=== PATIENT | female | born 1940 | race Caucasian/White ===

== ENCOUNTER 2017-07-26 13:16 | Emergency (ER) | payer MEDICARE, SELFPAY ==
[2017-07-26 13:17] VITALS: BP 171/90; PULSE 71; RESP 24; TEMP 36.1; O2SAT 98; BMI 26.4
--- NOTE | 2017-07-26 13:29 | ED.VISSUMM ---
- ER Visit Summary Date of Service: 07/26/17 Chief Complaint: Nausea, vomiting diarrhea History of Present Illness: The patient is a 77 F no significant past medical history prior appendectomy and cholecystectomy. No recent hospitalization. No recent surgery. No recent antibiotics. She is on no medications at home. Patient states intermittently for last months she has had nausea, vomiting diarrhea. No fever. No melena. No drastic weight change. Today she had similar symptoms and given the ER to be evaluated. She denies any abdominal pain. He denies any recent travel. They drink city water and bottled water at home. No one else at home with similar symptoms. She lives with her granddaughter. Physical Examination: Appearing older female. Vital signs are stable and afebrile. Blood pressure 171/90. Afebrile. No distress. H EENT exam mildly dry. Otherwise unremarkable. Neck nontender. No lymphadenopathy. Lungs clear to auscultation bilaterally. Heart regular rate and rhythm no murmur. Abdomen is soft, nontender, nondistended normal bowel sounds no peritoneal signs. No localizing tenderness. Moving all 4 extremities. Neurovascular intact. Neurologically she is awake alert without any focal motor deficits. Skin exam unremarkable. Back exam normal. Test Results: [] Emergency Department Course and Treatment: Patient will be hydrated with a liter of fluid. IV Zofran for nausea. P.o. fluid challenge. Treatment Plan: [] Disposition: Discharge Impression: Acute nausea, vomiting and diarrhea This note was generated with [employer] dictation software. It may contain incorrect words, spelling, and punctuation that were not noted in review of the chart prior to signing ED Disposition - Plan for ED Patient: Chief Complaint: Nausea/Vomiting/Diarrhea Referrals: Care Physician,No Primary [Primary Care Provider] -
--- NOTE | 2017-07-26 13:31 | ED.DEP ---
ED Disposition - Plan for ED Patient: Disposition: Home or Assisted Living Chief Complaint: Nausea/Vomiting/Diarrhea Instructions: ED Vomiting Diarrhea Nonspecific Ad Prescriptions: Ondansetron [Zofran Odt] 4 mg PO Q4H PRN PRN #7 tab.rapdis PRN Reason: Nausea Referrals: Elan Bagley MD [STAFF PHYSICIAN] - Additional Instructions: plenty of fluids and rest. Return if feeling worse or unable to keep fluids down. Zofran as needed for nausea.
[2017-07-26] MEDS: Ondansetron 4 MG/2 ML Vial IV (13:36)
[2017-07-26] MEDS: 0.9% Normal Saline 1,000 ML 1000 ML IV (13:36)
[2017-07-26 13:48] LABS: Absolute Lymphocyte Count 1.27 X10^3/ul (0.83-4.51); Absolute Neutrophil Count 3.8 X10^3/uL (2.0-7.7); Basophil# 0.01 X10^3/uL; Basophil% 0.2 % (0-1); Eosinophil# 0.18 X10^3/uL; Eosinophils% 3.2 % (0-5); Hematocrit 36.6 % (37-47); Hemoglobin 11.8 g/dl (12.0-15.0); Lymphocyte # 1.27 X10^3/ul (4.0); Lymphocyte % 22.9 % (19-41); Mean Corp Hgb Conc 32.2 g/gl (32-36); Mean Corpuscular Volume 86.7 fL (81-99); Monocyte# 0.24 X10^3/uL; Monocyte% 4.3 % (0-10); Neutrophil # 3.84 X10^3/uL (2.7-7.7); Neutrophil % 69.4 % (47-70); Platelet Count 196 K/mm3 (150-450); RBC Distribution Width CV 13.8 % (11.6-14.6); RBC Distribution Width SD 43.8 fl (35.1-43.9); Red Blood Count 4.22 M/mm3 (4.2-5.4); White Blood Count 5.5 K/mm3 (4.4-11.0)
[2017-07-26 13:52] LABS: POSITIVE COUNT NO; POSITIVE DIFFERENTIAL NO; POSITIVE MORPHOLOGY NO
[2017-07-26 13:53] LABS: Anion Gap 6 (5-15); BUN 14 mg/dL (7-18); BUN/Creat Ratio 16.2 RATIO (10-20); Calcium,Total 8.9 mg/dL (8.5-10.1); Chloride 104 mmol/L (98-107); Creatinine, Serum 0.86 mg/dL (0.55-1.02); EST Glomerular Filtration Rate 68 mL/min (>60); Est Glom Filt Rate - Afr Amer 82 mL/min (>60); Estimated Creatinine Clearance 42.64 ml/min; Glucose 175 mg/dL (74-106); Sodium Level 138 mmol/L (136-145)
[2017-07-26 14:25] VITALS: BP 136/63; PULSE 72; RESP 14
== END 2017-07-26 14:26 | disposition home or self-care (01) ==
PROVIDERS: Emergency Provider Emergency Medicine
DX: R11.2 Nausea with vomiting, unspecified (principal); R19.7 Diarrhea, unspecified; E86.0 Dehydration; Z79.82 Long term (current) use of aspirin
CPT/HCPCS: 80048; 85025; 96361; 96374; 99283; J7030; A4216; J2405

== ENCOUNTER 2017-08-26 10:42 | Emergency (ER) | payer MEDICARE, SELFPAY ==
[2017-08-26 10:44] VITALS: BP 154/97; PULSE 87; RESP 17; TEMP 36.6; O2SAT 99; BMI 25.2
--- NOTE | 2017-08-26 10:58 | ED.RN ---
DESCRIBED PAIN UPPER EPIGASTRIC
--- NOTE | 2017-08-26 11:00 | EKG12_ITS ---
Test Reason : ABNL PAIN Blood Pressure : / mmHG Vent. Rate : 067 BPM Atrial Rate : 067 BPM P-R Int : 140 ms QRS Dur : 064 ms QT Int : 382 ms P-R-T Axes : 011 015 062 degrees QTc Int : 403 ms Normal sinus rhythm Nonspecific T wave abnormality Abnormal ECG Confirmed by LOLA STEVENS, DESTINEE ([id number]), film editor SANA BUCHANAN ([id number]) on 08/28/2017 1:57:18 PM Referred By: MAXIMO Confirmed By:DESTINEE DAVILA MD
--- NOTE | 2017-08-26 11:00 | RAD_ITS ---
STUDY: X-RAY - ACUTE ABDOMINAL SERIES REASON FOR EXAM: Female, 77 years old. Hiatal hernia. TECHNIQUE: Single view of the chest. Supine, and erect view(s) of the abdomen were obtained. COMPARISON: None. FINDINGS: The lungs are clear and expanded. Cholecystectomy clips are in place. Normal size heart. Normal mediastinum and jinny. Normal visualized pulmonary arteries. 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 There is a non-specific bowel gas pattern. The soft tissue structures of the abdomen and pelvis are unremarkable. There are diffuse degenerative changes of the visualized lumbar spine. 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 RAD/Acute Abdomen Inc Chest IMPRESSION: No evidence of acute cardiopulmonary or intra-abdominal process. Electronically Signed: Brendan Franz DO at 12:07 EDT , Service support ,
--- NOTE | 2017-08-26 11:11 | ED.VISSUMM ---
- ER Visit Summary Date of Service: 08/26/17 Chief Complaint: Abdominal pain History of Present Illness: The patient is a 77 F with no primary care physician. She reports that yesterday at noon she ate Ramen noodles and has epigastric abdominal pain began approximately 1 hour later. States that does not feel as though something got stuck during this. She describes it as a sharp pain that is 10 out of 10 at worst and 8 at 10 currently. Is worsened by sitting periods relieved by nothing. She reports she has been nauseated and had small amounts of episodes multiple times. No blood in her emesis. No diarrhea. Last bowel movement was 2 days ago. Typically goes 2-3 times per week. No blood in her stools or black tarry stools. No dysuria or frequency. Physical Examination: Vitals: Stable. Afebrile. General: Well-nourished and well-developed. Head: Normocephalic atraumatic. Neck: Supple, no lymphadenopathy. No JVD. Nontender. Cardiovascular: Regular rate and rhythm. No murmurs. Respiratory: No respiratory distress. Clear to auscultation bilaterally. Abdominal: Soft, mild diffuse sinus palpation over her upper abdomen, nondistended, normal bowel sounds. No guarding, rebound, or peritoneal signs. Back: Nontender. Extremities: Nontender, no edema. Skin: Normal color, no rash. Neurologic: Alert and oriented ?3. Cranial nerves II through XII are intact. Normal strength and sensation. Psych: Normal affect. Test Results: EKG is sinus at 67 with artifact and no acute changes. Troponin is negative. Three-view of the abdomen shows nonspecific bowel gas pattern. CBC is marked for segment neutrophils 75 lymphocytes 16. Chem-7 is more for glucose of 110. LFTs marked for globulin 4.4 and AST of 12. Lipase is 70. Emergency Department Course and Treatment: Patient was treated Zofran IV and a GI cocktail p.o. She is resting comfortably. She feels much improved and would like to go home. Treatment Plan: Patient will be discharged with Zofran and Zantac. Instructed follow-up Dr. Arthur Loo III in 3-5 days for another exam. Return to the emergency department for any worsening symptoms. Disposition: To home in improved and stable condition. Impression: 1. Abdominal pain, uncertain cause. This note was generated with [employer] dictation software. It may contain incorrect words, spelling, and punctuation that were not noted in review of the chart prior to signing ED Disposition - Plan for ED Patient: Chief Complaint: Abd Pain Instructions: ED Abdominal Pain Unkn Cause Prescriptions: Ondansetron [Zofran Odt] 4 mg PO Q8H PRN PRN #10 tablet PRN Reason: Nausea Ranitidine [Zantac] 300 mg PO DAILY #30 tablet Referrals: Arthur Loo III, MD [STAFF PHYSICIAN] - 3-5 Days
[2017-08-26] MEDS: Ondansetron 4 MG/2 ML Vial IV (11:26)
[2017-08-26 11:40] LABS: Absolute Lymphocyte Count 1.41 X10^3/ul (0.83-4.51); Absolute Neutrophil Count 6.5 X10^3/uL (2.0-7.7); Basophil# 0.01 X10^3/uL; Basophil% 0.1 % (0-1); Eosinophil# 0.16 X10^3/uL; Eosinophils% 1.8 % (0-5); Hematocrit 39.4 % (37-47); Hemoglobin 12.6 g/dl (12.0-15.0); Lymphocyte # 1.41 X10^3/ul (4.0); Lymphocyte % 16.2 % (19-41); Mean Corpuscular Volume 87.6 fL (81-99); Mean Platelet Vol. 10.2 fl (6.2-12.0); Monocyte# 0.63 X10^3/uL; Monocyte% 7.2 % (0-10); Neutrophil # 6.48 X10^3/uL (2.7-7.7); Neutrophil % 74.5 % (47-70); POSITIVE COUNT NO; POSITIVE DIFFERENTIAL NO; POSITIVE MORPHOLOGY NO; Platelet Count 233 K/mm3 (150-450); RBC Distribution Width CV 13.9 % (11.6-14.6); RBC Distribution Width SD 44.5 fl (35.1-43.9); White Blood Count 8.7 K/mm3 (4.4-11.0)
[2017-08-26 11:53] LABS: AST(SGOT) 16 U/L (15-37); Alanine Aminotransfer ALT/SGPT 12 U/L (13-56); Albumin, Serum 3.5 g/dL (3.2-5.0); Alkaline Phosphatase 91 U/L (45-117); Anion Gap 7 (5-15); BUN 17 mg/dL (7-18); BUN/Creat Ratio 18.8 RATIO (10-20); Bilirubin, Direct 0.28 mg/dL (0.00-0.30); Calcium,Total 8.9 mg/dL (8.5-10.1); Chloride 106 mmol/L (98-107); EST Glomerular Filtration Rate 64 mL/min (>60); Est Glom Filt Rate - Afr Amer 78 mL/min (>60); Estimated Creatinine Clearance 40.74 ml/min; Globulin 4.4 g/dL (2.2-4.2); Glucose 110 mg/dL (74-106); Lipase 70 U/L (73-393); Potassium 3.8 mmol/L (3.5-5.1); Protein, Total 7.9 g/dL (6.4-8.2); Sodium Level 139 mmol/L (136-145)
[2017-08-26 13:04] VITALS: BP 145/76; PULSE 70; RESP 20; O2SAT 95
== END 2017-08-26 13:05 | disposition home or self-care (01) ==
PROVIDERS: Emergency Provider Emergency Medicine
DX: R10.84 Generalized abdominal pain (principal); Z79.82 Long term (current) use of aspirin
CPT/HCPCS: 74022; 80048; 80076; 83690; 84484; 85025; 93005; 96361; 96374; 99285; J7030; J7040; J2405

== ENCOUNTER 2019-11-27 10:05 | Emergency (ER) | payer MEDICARE, SELFPAY ==
[2019-11-27 10:06] VITALS: BP 179/92; PULSE 77; RESP 18; TEMP 36.6; O2SAT 96; BMI 27.4
--- NOTE | 2019-11-27 10:20 | EKG12_ITS ---
Test Reason : DIZZINESS Blood Pressure : / mmHG Vent. Rate : 068 BPM Atrial Rate : 068 BPM P-R Int : 132 ms QRS Dur : 076 ms QT Int : 396 ms P-R-T Axes : 000 031 036 degrees QTc Int : 421 ms Normal sinus rhythm Normal ECG Confirmed by DM MCFARLAND ([id number]), food expeditor SANA BUCHANAN ([id number]) on 12/02/2019 12:03:48 PM Referred By: ES Confirmed By:DM MCFARLAND
--- NOTE | 2019-11-27 10:20 | CT_ITS ---
STUDY: CT BRAIN WITHOUT CONTRAST REASON FOR EXAM: Female, 79 years old. PT STATED FALL, HIT HEAD RADIATION DOSAGE (If Supplied By Facility): CTDIvol = ( 44.99 ) mGy, DLP = ( 745.49 ) mGycm TECHNIQUE: Transaxial CT imaging of the brain was performed without administration of intravenous contrast material. Individualized dose optimization techniques were used for this CT. COMPARISON: 2011 FINDINGS: Normal soft tissue structures. Normal calvarium. Normal size ventricles and extra-axial spaces for the patient''s age. Normal white matter tracts of the cerebral hemispheres. Normal basal ganglia and thalami. Normal brainstem. Normal cerebellum. There is no intracranial hemorrhage. There are no findings of an acute ischemic infarction. Normal visualized paranasal sinuses. CT/Brain/Head without Contrast IMPRESSION: Chronic involutional changes of the brain. Electronically Signed: Abel Palomino MD at 11:03 EDT , Service support ,
--- NOTE | 2019-11-27 10:21 | ED.VISSUMM ---
- ER Visit Summary Date of Service: 11/27/19 Chief Complaint: Dizziness, head injury History of Present Illness: The patient is a 79 F who presents with dizziness that began today. Patient states she was sweeping her floor when she got dizzy and fell. Patient states she may have passed out briefly. Patient denies any chest pain or palpitations. Patient denies any shortness of breath or cough. Patient does admit to a mild headache. Patient admits to a hematoma in the right parietal area. Patient states she felt weak prior to passing out but now she feels back to normal. Patient states the episode lasted approximately 15 minutes. Physical Examination: Vital signs are stable. Patient is afebrile. Patient is in no acute distress. Oral mucosa is pink and moist. Neck is supple. Trachea is midline. There is no JVD noted. Heart was regular rate and rhythm. Lungs are clear and equal bilaterally. Abdomen is soft. Bowel sounds are normal. There is no tenderness. There is no rebound or guarding noted. Skin is warm dry. Cranial nerves II through XII are intact. There are no focal motor or sensory deficits noted. Extremities are intact. There is no calf tenderness or edema. Test Results: EKG showed normal sinus rhythm with a rate of 68. There are no acute ST or T wave changes. This was unchanged compared to previous EKG dated 08/26/2017. CBC and comprehensive metabolic profile were essentially within normal limits. Urinalysis does not show any evidence of urinary tract infection. Troponin was normal. Portable chest x-ray was obtained. There are chronic changes but no acute cardiopulmonary process. CT scan of the brain was obtained. There are chronic changes but no acute intracranial abnormality. These were interpreted by the radiologist and reviewed by myself. Emergency Department Course and Treatment: Patient was feeling better on reevaluation. Patient ambulated to the bathroom without difficulty. Patient wants to go home. Patient is low risk according to the [place] syncope criteria. Patient was instructed to follow-up with a primary care physician in 5 to 7 days. Patient was instructed return if worse in any way. Patient understood and was agreeable with the plan. All questions were answered. Disposition: Discharge home Impression: 1. Syncope This note was generated with [employer] software. It may contain incorrect words, spelling, and punctuation that were not noted in review of the chart prior to signing ED Disposition - Plan for ED Patient: Disposition: Home or Assisted Living Diagnosis: Syncope Instructions: ED Fainting Uncertain Cause Referrals: Elan Bagley MD [STAFF PHYSICIAN] - 5-7 Days
[2019-11-27 10:32] VITALS: BP 147/69; BP 151/68; BP 164/78; PULSE 65; PULSE 67; PULSE 74
[2019-11-27 10:46] LABS: Absolute Lymphocyte Count 1.66 X10^3/uL (0.83-4.51); Absolute Neutrophil Count 3.8 X10^3/uL (2.0-7.7); Basophil# 0.03 X10^3/uL; Basophil% 0.5 % (0-1); Eosinophil# 0.25 X10^3/uL; Hematocrit 33.5 % (37-47); Hemoglobin 11.1 g/dL (12.0-15.0); Lymphocyte # 1.66 X10^3/ul (4.0); Lymphocyte % 26.6 % (19-41); Mean Corp Hgb Conc 33.1 g/dL (32-36); Mean Corpuscular Hgb 30.8 pg (27.0-32.0); Mean Corpuscular Volume 93.1 fL (81-99); Mean Platelet Vol. 10.8 fl (6.2-12.0); Monocyte# 0.52 X10^3/uL; Monocyte% 8.3 % (0-10); NRBC Flagged by Analyzer 0 % (0-5); Neutrophil # 3.76 X10^3/uL (2.7-7.7); Neutrophil % 60.3 % (47-70); Platelet Count 208 K/mm3 (150-450); RBC Distribution Width CV 14.7 % (11.6-14.6); RBC Distribution Width SD 50.2 fl (35.1-43.9); White Blood Count 6.2 K/mm3 (4.4-11.0)
[2019-11-27 10:48] LABS: Color, Urine Yellow (Yellow); Glucose, Dipstick Normal (Normal); Ketone-Dipstick Negative (Negative); Leukocyte Esterase-Dipstick 100 /ul (Negative); Mucous, Urine 0 SEEN /hpf (<or=2+); Nitrite-Dipstick Negative (Negative); Occult Blood-Urine 25 /ul (Negative); Protein-Dipstick Negative (Negative); Urine Bilirubin Dipstick Negative (Negative); Urine Clarity Sl. Cloudy (Clear); Urine Urobilinogen Normal (Normal); Urine pH 6.5 (5.0 - 8.0)
[2019-11-27 10:54] LABS: Bacteria RARE /hpf (None Seen); Red Blood Cells-Urine 0-5 SEEN /hpf (0-5); Squamous Epithelial Cells - UA 0-5 SEEN /hpf (5-10); White Blood Cells 0-5 SEEN /hpf (0-5)
--- NOTE | 2019-11-27 10:54 | RAD_ITS ---
STUDY: X-RAY CHEST REASON FOR EXAM: Female, 79 years old. DIZZINESS AND SYNCOPAL EPISODE THIS MORNING, SHE FELL AND HIT HER HEAD. TECHNIQUE: Single AP portable view of the chest. COMPARISON: 05/06/2015 FINDINGS: EKG leads overlie the chest There are interstitial changes of the lungs. There is no demonstrated pleural abnormality. Normal size heart. Normal mediastinum and jinny. Normal visualized pulmonary arteries. There is atherosclerotic calcification of the aortic arch with tortuosity. There are diffuse degenerative changes of the visualized thoracic spine. Normal visualized ribs, clavicles, and shoulders. There is no demonstrated abnormality of the visualized soft tissue structures of the upper abdomen. RAD/Chest 1 View (Portable) IMPRESSION: Degenerative changes, as described above. No demonstrated acute cardiopulmonary process. Electronically Signed: Abel Palomino MD at 11:10 EDT , Service support ,
[2019-11-27 11:26] LABS: ALB/GLOB Ratio 0.9 RATIO (0.9-2.4); AST(SGOT) 15 U/L (15-37); Alanine Aminotransfer ALT/SGPT 15 U/L (13-56); Albumin, Serum 3.7 g/dL (3.2-5.0); Alkaline Phosphatase 92 U/L (45-117); Anion Gap 3 (5-15); BUN 16 mg/dL (7-18); BUN/Creat Ratio 19.5 RATIO (10-20); Calcium,Total 9.2 mg/dL (8.5-10.1); Chloride 104 mmol/L (98-107); Creatinine, Serum 0.82 mg/dL (0.55-1.02); EST Glomerular Filtration Rate 71 mL/min (>60); Est Glom Filt Rate - Afr Amer 86 mL/min (>60); Estimated Creatinine Clearance 43.28 ml/min; Globulin 4.3 g/dL (2.2-4.2); Glucose 98 mg/dL (74-106); Potassium 3.7 mmol/L (3.5-5.1); Sodium Level 136 mmol/L (136-145)
[2019-11-27 11:55] VITALS: BP 128/64; PULSE 67; RESP 18; O2SAT 99
== END 2019-11-27 11:57 | disposition home or self-care (01) ==
PROVIDERS: Emergency Provider Emergency Medicine
DX: R55 Syncope and collapse (principal)
CPT/HCPCS: 70450; 71045; 80053; 81001; 84484; 85025; 93005; 99285; A4216

== ENCOUNTER 2020-09-26 10:22 | Emergency (ER) | payer MEDICARE, SELFPAY ==
[2020-09-26 10:23] VITALS: BP 111/74; PULSE 61; RESP 16; TEMP 36.5; O2SAT 99; BMI 17.2
--- NOTE | 2020-09-26 10:39 | CT_ITS ---
STUDY: CT ABDOMEN AND PELVIS WITH CONTRAST REASON FOR EXAM: Female, 80 years old. abdominal pain, Jaundice -- IV PO Contrast RADIATION DOSAGE (If Supplied By Facility): CTDIvol = ( 5.46 ) mGy, DLP = ( 206.45 ) mGycm TECHNIQUE: Transaxial images were obtained from the dome of the diaphragm to the symphysis pubis with oral contrast. Oral and amp; IV Gastrografin and amp; 70mL Isovue-300 was administered. Sagittal and coronal images were reconstructed. Individualized dose optimization techniques were used for this CT. COMPARISON: None. FINDINGS: Innumerable noncalcified nodules in lung bases worrisome for metastatic disease. The visualized portions of the heart are within normal limits. Small amount of ascites within the upper abdomen and pelvis. 2 semi round mass of decreased attenuation within the lateral segment left lobe of the liver consistent with metastasis. There are surgical clips in the gallbladder fossa consistent with a prior cholecystectomy. Severe intrahepatic and extrahepatic biliary ductal dilatation to the level the pancreatic head. Normal spleen. 3 x 4 cm necrotic mass of the head of the pancreas most worrisome for pancreatic carcinoma. Normal bilateral adrenal glands. Normal right kidney. Normal left kidney. Normal visualized stomach. Normal small intestine. There are multiple colonic diverticula consistent with diverticulosis. There is non-visualization of the appendix. Normal abdominal aorta. Normal inferior vena cava. 1.5 x 2.5 cm left gastric lymphadenopathy. 1.5 x 2.5 cm portacaval lymphadenopathy. 1.2 x 2.6 cm interaortocaval lymphadenopathy. 1.5 x 3.0 cm left periaortic lymphadenopathy. Findings are consistent with metastatic lymphadenopathy. Normal urinary bladder. Normal abdominal wall. Mild dextroscoliosis of lumbar spine with degenerative disc disease. CT/Abdomen/Pelvis WITH Contrast IMPRESSION: 3 x 4 cm necrotic mass of the head of the pancreas worrisome for pancreatic carcinoma. Associated hepatic metastasis, pulmonary metastases, and metastatic lymphadenopathy with a small amount of ascites. Electronically Signed: Carlos Borja MD at 14:20 EDT Tel , Service support ,
--- NOTE | 2020-09-26 10:41 | EDS_ITS ---
HPI <Dr. Tracie Rushing DO - Last Filed: 09/26/20 15:47> History of Present Illness Chief Complaint: General Illness Detail of Chief Complaint: Patient with jaundice and intermittent abdominal pain for the last 2 months Informant: patient Narrative Narrative: Patient presents to the emergency department with complaint of not feeling well for about 2 months. Patient states that she has been losing a lot of weight. Patient noted that her urines been dark. Her granddaughter noticed recently that her skin was yellow. Patient states that she is not had any fever or recent illness otherwise. She is had no vomiting or diarrhea. Patient denies any blood in her stool or black tarry stool. Patient has a remote history of smoking and states she has not been drinking alcohol in the last 4 years. Patient tells me she has no medical history and does not see a primary care physician. Patient not currently having abdominal pain. Patient tells me that her gallbladder and her appendix of both been removed. Prior similar symptoms: No PFSH <Dr. Tracie Rushing DO - Last Filed: 09/26/20 15:47> PFSH Home Medications apple cider vinegar 300 mg PO DAILY 07/26/17 [History Last Taken Unknown] aspirin 81 mg PO DAILY@0800 07/26/17 [History Last Taken Unknown] cinnamon bark 500 mg PO DAILY 07/26/17 [History Last Taken Unknown] Garlic 1 tab PO BID 11/27/19 [History Last Taken Unknown] Allergy/AdvReac Type Severity Reaction Status Date / Time Iodinated Contrast Media Allergy Shortness Verified 09/26/20 10:26 [DYEE] of breath Penicillins Allergy Hives Verified 09/26/20 10:26 Surgical History (Updated 09/26/20 @ 11:16 by Waleska Andre) History of appendectomy History of cholecystectomy Social History (System 08/28/17 @ 09:34 by Michell Byrnes) Smoking Status: Former smoker ROS <Dr. Tracie Rushing DO - Last Filed: 09/26/20 15:47> ROS ED Constitutional Constitutional ED: Reports systems reviewed and no addt'l complaints, except as documented; Denies body ache(s), change in weight or chills Eyes Eyes: Denies acute decrease in peripheral vision, change in vision, double vision or loss of vision ENT ENT ED: Reports none; Denies ear pain, lip swelling, loss taste/smell, neck pain, otalgia or sore throat Cardiovascular Cardiovascular: Reports none; Denies abdominal pain, chest pain with activity, leg edema, lightheadedness, palpitations, rapid heart rate or syncope Respiratory/Chest Respiratory/Chest: Reports none; Denies change in mental status, dry cough, dyspnea, hemoptysis, shortness of breath at rest or shortness of breath with exertion Gastrointestinal Gastrointestinal: Reports none and abdominal pain; Denies change in stool character, diarrhea, hematemesis, hematochezia, melena, nausea, rectal bleeding or vomiting Genitourinary Genitourinary ED: Reports none; Denies abdominal discomfort, anuria, dysuria, genital pain or polyuria Musculoskeletal Musculoskeletal: Reports none; Denies arthralgias, back pain, difficulty walking, extremity pain, muscle weakness or myalgias Integumentary Reports none; Denies abscess or rash Neurologic Neurologic: Reports none; Denies abnormal gait, confusion, focal weakness, frequent falls, headache(s), loss of vision, numbness, paresthesias, radicular pain, vertigo or weakness Psychiatric Psychiatric: Reports systems reviewed and no addt'l complaints, except as documented and none; Denies behavioral changes, confusion, difficulty concentrating, hallucinations, suicidal ideation, tactile hallucinations or visual hallucinations Endocrine Endocrinology: Denies none, cold intolerance, excessive sweating, fatigue or heat intolerance Hematologic/Lymphatic Hematologic/Lymphatic: Reports none; Denies anemia, easy bleeding or easy bruising Allergic/Immunologic Allergic/Immunologic ED: Denies as per HPI, none, lip swelling, mouth swelling, throat swelling, tongue swelling or hives EXAM <Dr. Tracie Rushing, DO - Last Filed: 09/26/20 15:47> Physical Exam Const Vital Signs: 09/26/20 10:23 09/26/20 11:05 09/26/20 12:40 Temperature 97.7 F L Temperature Source Temporal Pulse Rate 61 73 Respiratory Rate 16 15 Respiratory Effort Normal Respiratory Pattern Normal Blood Pressure 111/74 149/79 H Blood Pressure Mean 86 102 Pulse Ox 99 100 Oxygen Delivery Method Room Air Room Air 09/26/20 14:30 Temperature Temperature Source Pulse Rate 76 Respiratory Rate 16 Respiratory Effort Respiratory Pattern Blood Pressure 138/74 H Blood Pressure Mean 95 Pulse Ox 98 Oxygen Delivery Method Room Air Positive well nourished and well developed General Appearance ED: well developed and NAD HEENT Reports TM's clear and moist mucous membranes normocephalic and atraumatic; Negative for trauma or tenderness Tympanic Membrane ED: Yes TM's clear Eyes PERRL and EOMs intact bilaterally General Eye ED: Negative for pale conjunctiva or scleral icterus Neck no lymphadenopathy, supple and no JVD General: Negative for tenderness Chest Wall inspection of chest normal and palpation of chest normal Chest: Negative for tenderness Resp normal respiratory effort and clear to auscultation bilaterally Effort and Inspection: Negative for respiratory distress or pain with movement Auscultation: Negative for rhonchi, wheezes or diminished lung sounds Cardio regular rate, regular rhythm, S1 normal heart sound, S2 normal heart sound and no murmurs Peripheral Pulses: pulses 2+ throughout GI normal to inspection, nondistended, normoactive bowel sounds, soft to palpation, non-distended and no masses; Negative for non-tender GI Narrative: Patient with mild diffuse tenderness throughout her abdomen. No rebound, rigidity, or peritoneal signs. Palpation: tender Back/Spine no CVA tenderness and no thoracic nor lumbar tenderness Extremity normal to inspection General Extremety ED: Negative for edema General Extremity: Negative for edema Neuro oriented x3, CN's II-XII intact bilaterally, no sensory deficits noted and gait normal Sensorium / Orientation: awake, alert, oriented to person, oriented to place and oriented to time Motor Exam: strength 5/5 throughout and strength abnormal Psych mental status grossly normal Skin no wounds Skin Narrative: Patient is diffusely jaundiced. General Skin Exam: jaundice <Dr. Adia Jules, DO - Last Filed: 09/26/20 14:32> Physical Exam Const Vital Signs: 09/26/20 10:23 09/26/20 11:05 09/26/20 12:40 Temperature 97.7 F L Temperature Source Temporal Pulse Rate 61 73 Respiratory Rate 16 15 Respiratory Effort Normal Respiratory Pattern Normal Blood Pressure 111/74 149/79 H Blood Pressure Mean 86 102 Pulse Ox 99 100 Oxygen Delivery Method Room Air Room Air 09/26/20 14:30 Temperature Temperature Source Pulse Rate 76 Respiratory Rate 16 Respiratory Effort Respiratory Pattern Blood Pressure 138/74 H Blood Pressure Mean 95 Pulse Ox 98 Oxygen Delivery Method Room Air MDM <Dr. Tracie Rushing, DO - Last Filed: 09/26/20 15:47> [facility] Narrative Medical decision making narrative: Patient case discussed with patient and her granddaughter. I discussed with hospitalist who recommended transfer to tertiary care center. I discussed with [facility] as this was their preference initially but they did not have GI available and could not except the patient. I did discuss case with [facility] who accepted transfer of patient. Lab Data Attestation: I reviewed the patient's lab results. Labs: Laboratory Results - last 24 hr 09/26/20 09/26/20 09/26/20 11:05 11:05 11:05 WBC 6.8 RBC 3.78 L Hgb 12.4 Hct 34.1 L MCV 90.2 MCH 32.8 H MCHC 36.4 H RDW Std Deviation 56.7 H RDW Coeff of Steven 17.2 H Plt Count 211 MPV 11.8 Immature Gran % (Auto) 1.200 H Neut % (Auto) 81.3 H Lymph % (Auto) 7.6 L [place] % (Auto) 9.2 Eos % (Auto) 0.3 Baso % (Auto) 0.4 Absolute Neuts (auto) 5.5 Absolute Lymphs (auto) 0.51 L Nucleated RBC % 0 Diff Path Review May foll Hypersegmented Neuts 1+ H Sodium 132 L Potassium 3.1 L Chloride 88 L Carbon Dioxide 30.0 Anion Gap 14 BUN 17 Creatinine 0.98 Estim Creat Clear Calc 30.42 Est GFR (MDRD) Af Amer 70 Est GFR (MDRD) Non-Af 58 L BUN/Creatinine Ratio 17.4 Glucose 126 H Lactic Acid 2.2 H* Calcium 9.5 Total Bilirubin 22.20 H* Direct Bilirubin 18.55 H AST 383 H ALT 165 H Alkaline Phosphatase 973 H Total Protein 6.9 Albumin 2.9 L Globulin 4.0 Lipase 41 L Radiography Diagnostic Testing: Radiology Impression Abdomen/Pelvis CT 09/26/20 10:39 IMPRESSION: 3 x 4 cm necrotic mass of the head of the pancreas worrisome for pancreatic carcinoma. Associated hepatic metastasis, pulmonary metastases, and metastatic lymphadenopathy with a small amount of ascites. Electronically Signed: Carlos Borja MD at 14:20 EDT Tel , Service support , Chest X-Ray 09/26/20 12:00 IMPRESSION: 1. Mild pulmonary edema. 2. Multiple pulmonary nodules, possibly metastatic disease. Refer to definitive chest imaging. Electronically Signed: Mckinley Chamberlain MD at 14:13 EDT Tel , Service support , <Dr. Aida Jules, DO - Last Filed: 09/26/20 14:32> [facility] Lab Data Labs: Laboratory Results - last 24 hr 09/26/20 09/26/20 09/26/20 11:05 11:05 11:05 WBC 6.8 RBC 3.78 L Hgb 12.4 Hct 34.1 L MCV 90.2 MCH 32.8 H MCHC 36.4 H RDW Std Deviation 56.7 H RDW Coeff of Steven 17.2 H Plt Count 211 MPV 11.8 Immature Gran % (Auto) 1.200 H Neut % (Auto) 81.3 H Lymph % (Auto) 7.6 L [place] % (Auto) 9.2 Eos % (Auto) 0.3 Baso % (Auto) 0.4 Absolute Neuts (auto) 5.5 Absolute Lymphs (auto) 0.51 L Nucleated RBC % 0 Diff Path Review May foll Hypersegmented Neuts 1+ H Sodium 132 L Potassium 3.1 L Chloride 88 L Carbon Dioxide 30.0 Anion Gap 14 BUN 17 Creatinine 0.98 Estim Creat Clear Calc 30.42 Est GFR (MDRD) Af Amer 70 Est GFR (MDRD) Non-Af 58 L BUN/Creatinine Ratio 17.4 Glucose 126 H Lactic Acid 2.2 H* Calcium 9.5 Total Bilirubin 22.20 H* Direct Bilirubin 18.55 H AST 383 H ALT 165 H Alkaline Phosphatase 973 H Total Protein 6.9 Albumin 2.9 L Globulin 4.0 Lipase 41 L Radiography Diagnostic Testing: Radiology Impression Abdomen/Pelvis CT 09/26/20 10:39 IMPRESSION: 3 x 4 cm necrotic mass of the head of the pancreas worrisome for pancreatic carcinoma. Associated hepatic metastasis, pulmonary metastases, and metastatic lymphadenopathy with a small amount of ascites. Electronically Signed: Carlos Borja MD at 14:20 EDT Tel , Service support , Chest X-Ray 09/26/20 12:00 IMPRESSION: 1. Mild pulmonary edema. 2. Multiple pulmonary nodules, possibly metastatic disease. Refer to definitive chest imaging. Electronically Signed: Mckinley Chamberlain MD at 14:13 EDT Tel , Service support , <Dr. Tracie Rushing, DO - Last Filed: 09/26/20 15:47> Critical Care Time Critical Care Time: Yes Critical care time (excluding procedures): 30-74 minutes, Discussing w/Patient &/or Family/[facility] [employer], Discussing w/Consultants and Arranging Admission or Transfer Discharge Plan Triage Chief Complaint: General Illness ED Provider: Tracie Rushing Dx/Rx/DC Orders Clinical Impression: Pancreatic cancer metastasized to lung, Pancreatic cancer metastasized to liver, Hyperbilirubinemia Prescriptions: No Action aspirin 81 MG tablet 81 mg PO DAILY@0800 RF: 0 cinnamon bark 500 MG capsule 500 mg PO DAILY RF: 0 apple cider vinegar 300 MG tablet 300 mg PO DAILY RF: 0 Garlic 1 TABLET tablet 1 tab PO BID RF: 0 Primary Care Provider: Care Physician,No Primary Referrals: Care Physician,No Primary [Primary Care Provider] - Disposition Disposition: Transfer to another type HCF
[2020-09-26] MEDS: DiphenhydrAMINE 50 MG/ML Syringe 25 MG IV (11:13)
[2020-09-26] MEDS: Ondansetron 4 MG/2 ML Vial IV ×2 (11:13→21:58)
[2020-09-26] MEDS: MethylPREDNISolone 125 MG/2 ML Vial IV (11:13)
[2020-09-26] MEDS: 0.9% Normal Saline 1,000 ML 150 ML IV ×2 (11:23→20:15)
[2020-09-26 11:27] LABS: Absolute Lymphocyte Count 0.51 X10^3/uL (0.83-4.51); Absolute Neutrophil Count 5.5 X10^3/uL (2.0-7.7); Basophil# 0.03 X10^3/uL; Basophil% 0.4 % (0-1); Eosinophil# 0.02 X10^3/uL; Eosinophils% 0.3 % (0-5); Hematocrit 34.1 % (37-47); Hemoglobin 12.4 g/dL (12.0-15.0); Lymphocyte # 0.51 X10^3/ul (0.83-4.51); Lymphocyte % 7.6 % (19-41); Mean Corp Hgb Conc 36.4 g/dL (32-36); Mean Corpuscular Hgb 32.8 pg (27.0-32.0); Mean Corpuscular Volume 90.2 fL (81-99); Mean Platelet Vol. 11.8 fl (6.2-12.0); Monocyte# 0.62 X10^3/uL; Monocyte% 9.2 % (0-10); NRBC Flagged by Analyzer 0 % (0-5); Neutrophil # 5.49 X10^3/uL (2.7-7.7); Neutrophil % 81.3 % (47-70); POSITIVE DIFFERENTIAL YES; Platelet Count 211 K/mm3 (150-450); RBC Distribution Width CV 17.2 % (11.6-14.6); RBC Distribution Width SD 56.7 fl (35.1-43.9); Red Blood Count 3.78 M/mm3 (4.2-5.4); White Blood Count 6.8 K/mm3 (4.4-11.0)
[2020-09-26 11:40] LABS: Differential Indicated SCAN CRITERIA MET
--- NOTE | 2020-09-26 12:00 | RAD_ITS ---
STUDY: X-RAY CHEST REASON FOR EXAM: Female, 80 years old. weakness TECHNIQUE: Frontal portable view of the chest COMPARISON: 27 November 2019 FINDINGS: Inspiratory volumes are low. Interstitial markings are increased in visibility, likely mild pulmonary edema. Additionally, there is a superimposed appearance of extensive nodularity. Cardiac size is normal. There is no pneumothorax, pleural effusions. There is cholecystectomy.. RAD/Chest 1 View (Portable) IMPRESSION: 1. Mild pulmonary edema. 2. Multiple pulmonary nodules, possibly metastatic disease. Refer to definitive chest imaging. Electronically Signed: Mckinley Chamberlain MD at 14:13 EDT Tel , Service support ,
[2020-09-26 12:08] LABS: Hypersegmented Neutrophils 1+
[2020-09-26 12:16] LABS: AST(SGOT) 383 U/L (15-37); Alanine Aminotransfer ALT/SGPT 165 U/L (13-56); Albumin, Serum 2.9 g/dL (3.2-5.0); Alkaline Phosphatase 973 U/L (45-117); Anion Gap 14 (5-15); BUN 17 mg/dL (7-18); BUN/Creat Ratio 17.4 RATIO (10-20); Bilirubin, Direct 18.55 mg/dL (0.00-0.30); Calcium,Total 9.5 mg/dL (8.5-10.1); Chloride 88 mmol/L (98-107); Creatinine, Serum 0.98 mg/dL (0.55-1.02); EST Glomerular Filtration Rate 58 mL/min (>60); Est Glom Filt Rate - Afr Amer 70 mL/min (>60); Estimated Creatinine Clearance 30.42 ml/min; Glucose 126 mg/dL (74-106); Lipase 41 U/L (73-393); Potassium 3.1 mmol/L (3.5-5.1); Protein, Total 6.9 g/dL (6.4-8.2); Sodium Level 132 mmol/L (136-145)
[2020-09-26 12:17] LABS: Lactic Acid 2.2 mmol/L (0.4-1.9)
[2020-09-26 12:40] VITALS: BP 149/79; PULSE 73; RESP 15; O2SAT 100
[2020-09-26 14:30] VITALS: BP 138/74; PULSE 76; RESP 16; O2SAT 98
[2020-09-26 15:23] LABS: Reflex Lactate? Y
[2020-09-26 16:26] LABS: Lactic Acid 2.3 mmol/L (0.4-1.9)
--- NOTE | 2020-09-26 16:50 | NURSING ---
CALLED TO INFORM GRETA WITH [facility] THAT COVID TEST WAS NEGATIVE. SHE WILL CALL BACK WHEN THEY HAVE A BED
[2020-09-26 18:00] VITALS: BP 137/75; PULSE 75; RESP 16; O2SAT 98
--- NOTE | 2020-09-26 18:18 | ED.RN ---
LEFT MESSAGE WITH MAKENNA CUEVAS TO CALL US WITH AN UPDATE LADONNA
[2020-09-26 20:00] VITALS: BP 127/70; PULSE 72; RESP 15; TEMP 36.9; O2SAT 98
--- NOTE | 2020-09-26 20:21 | ED.RN ---
Attempted to call report x2 without success. Phone rang, no answer. Called the ED of [facility] and was transferred to call report and again the phone rang without answer. Report to transporting squad to inform accepting nurse that she may call for report once pt arrives.
--- NOTE | 2020-09-26 21:06 | NURSING ---
On hold to give report for 12minutes; disconnected without giving report. Will relay to transporting squad that the accepting RN may call for report at her convenience.
--- NOTE | 2020-09-26 21:18 | ED.RN ---
CALLED PHYSICIANS AT 1938 FOR A RIDE FOR THIS PATIENT TO GO TO [facility], I WAS TOLD A ETA OF 1 HOUR. 2118 I CALLED AND THEY SAID IT WOULD BE ANOTHER 32 MINUTES. I WAITED FOR THE HALF HOUR TO BE UP TO CALL THEM AGAIN, SO IT WENT FROM 1 HOUR TO 2 HOURS AND THEY NEVER CALLED TO INFORM US OF THIS.
--- NOTE | 2020-09-26 21:53 | ED.RN ---
PHYSICIANS CALLED AGAIN AND SAID THAT THEY WOULD BE ANOTHER 15 MINUTES. SO THIS RIDE HAS NOW TURNED INTO ALMOST A 2.5 HOUR RIDE, INSTEAD OF A HOUR.
[2020-09-28 13:18] LABS: Pathologist Review Reviewed
== END 2020-09-26 22:07 | disposition other institution (70) ==
PROVIDERS: Emergency Provider Emergency Medicine
DX: C25.9 Malignant neoplasm of pancreas, unspecified (principal); C78.00 Secondary malignant neoplasm of unspecified lung; C78.7 Secondary malignant neoplasm of liver and intrahepatic bile duct; E80.6 Other disorders of bilirubin metabolism; Z87.891 Personal history of nicotine dependence
CPT/HCPCS: 71045; 74177; 80048; 80076; 83605; 83690; 85025; 87426; 96361; 96374; 96375; 96376; 99285; J7030; Q9967; A4216; J2405